=== PATIENT | male | born 1945 | race Caucasian/White ===

== ENCOUNTER 2018-03-05 20:02 | Emergency (ER) | payer MEDICARE ==
[~2018-03-05] VITALS: Ht 177.8 cm; Wt 90.7 kg
[2018-03-05] MEDS ORDERED: AMLODIPINE BESI25 GM PO (20:20)
[2018-03-05] MEDS ORDERED: TOPROL XL50 MG PO (20:20)
[2018-03-05] MEDS ORDERED: LIPITOR20 MG PO (20:21)
[2018-03-05] MEDS ORDERED: ASPIR 8181 MG PO (20:21)
[2018-03-05] MEDS ORDERED: LEXAPRO20 MG PO (20:21)
--- NOTE | 2018-03-06 14:52 | EKG ---
[facility] [address] [facility] [place], [place] [address] Signed Sinus bradycardia with sinus arrhythmia Otherwise normal ECG No previous ECGs available Confirmed by NEPTALI WOODS MD ([id number] on 03/06/2018 2:51:43 PM Electronically Signed By: NEPTALI WOODS MD 03/06/18 1452 PATIENT NAME: BENSON STARR Electrocardiogram DATE OF : 43 PHYSICIAN: NEPTALI WOODS MD REPORT #: [id number] REPORT IS CONFIDENTIAL AND NOT TO BE RELEASED WITHOUT AUTHORIZATION
== END 2018-03-05 22:03 | disposition home or self-care (01) ==
LOC: ED 20:02
DX: R42 Dizziness and giddiness (principal); Z87.891 Personal history of nicotine dependence; Z91.038 Other insect allergy status; Z88.0 Allergy status to penicillin; Z91.030 Bee allergy status; Z79.899 Other long term (current) drug therapy
CPT/HCPCS: 70450; 71045; 80053; 81001; 84484; 85025; 85610; 85730; 93005; 93010; 99284